=== PATIENT | female | born 1995 | race Caucasian/White ===

== ENCOUNTER → 2021-08-14 | Outpatient (REF) | payer OTHER, BC ==
[~2021-08-14] MED LIST: ALBU0.63 NEB; REGL10TA6 PO
[2021-08-14 13:37] LABS: HEMATOCRIT 36.9 % (36.0-47.0); HEMOGLOBIN 12.6 g/dl (12.0-15.5); MEAN CORPUSCULAR HEMOGLOBIN 29.1 pg (27.0-33.0); MEAN CORPUSCULAR HGB CONC 34.1 g/dl (32.0-36.5); MEAN CORPUSCULAR VOLUME 85.2 fl (80.0-96.0); PLATELET COUNT, AUTOMATED 304 10^3/uL (150-450); RED BLOOD COUNT 4.33 10^6/uL (4.00-5.40); WHITE BLOOD COUNT 8.6 10^3/uL (4.0-10.0)
[2021-08-14 15:00] LABS: HCG, SERUM QUANTITATIVE 71008 MIU/ML; HEPATITIS B SURFACE ANTIGEN NEGATIVE (NEGATIVE); HEPATITIS C VIRUS ABY INDEX 0.1 INDEX (<0.8); HIV 1&2 SCREEN CENTAUR NEGATIVE (NEGATIVE)
== END ==
LOC: M LAB REF 12:51
PROVIDERS: ATTEND Advanced Practice Midwife
DX: Z32.01 Encounter for pregnancy test, result positive (principal)

== ENCOUNTER 2021-08-16 19:39 | Emergency (ER) | payer OTHER, BC ==
[~2021-08-16] VITALS: Ht 167.6 cm; Wt 68.2 kg
--- OUTSIDE RECORDS SUMMARY | 2021-08-16 19:46 | CCD ---
Author Author [facility] Organization [facility] Address Unknown Phone Unavailable Support Name Relationship Address Phone SELF EMPLOYED [place] [address] [address] Next Of Kin [address] [place] [address] UE Next Of Kin Unknown Unavailable NEFTALI VAUGHAN Next Of Kin [address] [place] [address] ALEXANDER VAUGHAN Next Of Kin [address] [place] [address] Re-disclosure Warning The records that you are about to access may contain information from federally-assisted alcohol or drug abuse programs. If such information is present, then the following federally mandated warning applies: This information has been disclosed to you from records protected by federal confidentiality rules (42 CFR part 2). The federal rules prohibit you from making any further disclosure of this information unless further disclosure is expressly permitted by the written consent of the person to whom it pertains or as otherwise permitted by 42 CFR part 2. A general authorization for the release of medical or other information is NOT sufficient for this purpose. The Federal rules restrict any use of the information to criminally investigate or prosecute any alcohol or drug abuse patient.The records that you are about to access may contain highly sensitive health information, the redisclosure of which is protected by Article 27-F of the [facility] Public Health law. If you continue you may have access to information: Regarding HIV / AIDS; Provided by facilities licensed or operated by the [facility] Office of Mental Health; or Provided by the [facility] Office for People With Developmental Disabilities. If such information is present, then the following [facility] mandated warning applies: This information has been disclosed to you from confidential records which are protected by state law. State law prohibits you from making any further disclosure of this information without the specific written consent of the person to whom it pertains, or as otherwise permitted by law. Any unauthorized further disclosure in violation of state law may result in a fine or retirement sentence or both. A general authorization for the release of medical or other information is NOT sufficient authorization for further disc losure. Family History Family Member Name Family Member Gender Family Member Status Date o f Status Description Data Source(s) Unknown Female Problem [facility] ([facility] Medications No Information Insurance Providers Payer name Policy type / Coverage type Policy ID Covered libertarian ID Covered libertarian's relationship to pulido Policy Pulido Plan Information Star P [id number] S [id number] Star P [id number] S [id number] [facility] [id number] FA2 [id number] [facility] [id number] FA2 [id number] Self Pay O none S none Sliding Fee Scale S none S no ne [facility] [id number] SP [id number] Sliding Fee Scale S [id number] S [id number] [facility] Commercial [id number] Family Dependent [facility] O [id number] S [id number] SELF PAY UNAVAILABLE SP UNAVAILA BLE Problems, Conditions, and Diagnoses No Information Surgeries/Procedures No Information Results No Information Social History No Information
[2021-08-16] MEDS ORDERED: ALBU0.63 NEB (20:05)
[2021-08-16] MEDS ORDERED: REGL10TA6 PO (20:05)
[2021-08-16 20:35] LABS: BASO % 0.2 % (0.0-1.0); EOS # 0.1 10^3/uL (0.0-0.5); EOS % 1.1 % (0.0-3.0); HEMATOCRIT 34.9 % (36.0-47.0); LYMPH # 2.6 10^3/uL (1.5-5.0); LYMPH % 28.2 % (24.0-44.0); MEAN CORPUSCULAR HEMOGLOBIN 29.6 pg (27.0-33.0); MEAN CORPUSCULAR HGB CONC 34.4 g/dl (32.0-36.5); MEAN CORPUSCULAR VOLUME 86.2 fl (80.0-96.0); MONO # 0.6 10^3/uL (0.0-0.8); NEUTROPHILS % 64.2 % (36.0-66.0); PLATELET COUNT, AUTOMATED 277 10^3/uL (150-450); RED BLOOD COUNT 4.05 10^6/uL (4.00-5.40); WHITE BLOOD COUNT 9.3 10^3/uL (4.0-10.0)
[2021-08-16 21:24] LABS: BLOOD UREA NITROGEN 7 MG/DL (7-18); CALCIUM LEVEL 9.6 MG/DL (8.5-10.1); CARBON DIOXIDE LEVEL 24 MEQ/L (21-32); CHLORIDE LEVEL 105 MEQ/L (98-107); GLOMERULAR FILTRATION RATE > 60.0 (>60); GLUCOSE, FASTING 100 MG/DL (70-100); HCG, SERUM QUANTITATIVE 78410 MIU/ML; MAGNESIUM LEVEL 1.9 MG/DL (1.8-2.4); SODIUM LEVEL 137 MEQ/L (136-145)
--- OUTSIDE RECORDS SUMMARY | 2021-08-16 21:36 | CCD ---
Author Author [facility] Organization [facility] Address Unknown Phone Unavailable Support Name Relationship Address Phone SELF [place]ED [place] [address] [address] Next Of Kin [address] [place] [address] UE Next Of Kin Unknown Unavailable NEFTALI VAUGHAN Next Of Kin [address] [place] [address] ALEXANDER VAUGHAN Next Of Kin [address] [place] [address] Re-disclosure Warning The records that you are [...] is protected by Article 27-F of the [facility] Public Health law. If you continue you may have access to information: Regarding HIV / AIDS; Provided by facilities licensed or operated by the [facility] Office of Mental Health; or Provided by the [facility] Office for People With Developmental Disabilities. If such information is present, then the following [facility] mandated warning applies: This information has been [...] law may result in a fine or mcfp sentence or both. A general authorization for the release of medical or other information is NOT sufficient authorization for further disc losure. Family History Family Member Name Family Member Gender Family Member Status Date o f Status Description Data Source(s) Unknown Female Problem [facility]ENT ([facility] Medications No Information Insurance Providers Payer name Policy type / Coverage type Policy ID Covered republican ID Covered republican's relationship to pulido Policy Pulido Plan Information [place] P [id number] S [id number] [place] P [id number] S [id number] [facility] [id number] FA2 [id number] [facility] [id number] FA2 [id number] Self Pay O none S none Sliding Fee Scale S none S no ne [facility] [id number] SP [id number] Sliding Fee Scale S [id number] S [id number] [facility] Commercial [id number] Family Dependent [facility] O [id number] S [id number] SELF PAY UNAVAILABLE SP UNAVAILA BLE Problems, Conditions, and Diagnoses No Information Surgeries/Procedures No Information Results No Information Social History No Information
--- NOTE | 2021-08-16 22:06 | REPVR ---
PROCEDURE INFORMATION: Exam: US First Trimester, Transabdominal Exam date and time: 08/16/2021 8:52 PM Age: 26 years old Clinical indication: Lmp or gestational age (in weeks): 11wks2; Other: Vag bleeding; ; Additional info: Vaginal bleeding, abdominal pain. TECHNIQUE: Imaging protocol: Real-time transabdominal obstetrical ultrasound of the maternal pelvis and a first trimester , less than 14 weeks 0 days, with image documentation. COMPARISON: No relevant prior studies available. FINDINGS: Gestation: Single gestational sac demonstrated in the uterine fundus. Embryonic/ heart rate: heart rate is 165 bpm. Extra-embryonic membranes/Placenta: Placenta developing anteriorly. Amniotic fluid: Amniotic fluid/chorionic fluid is normal for gestational age. BIOMETRY: Gestational age (AUA): Gestational age based on crown-rump length is 10 weeks 2 days. This correlates with menstrual dates predicted 10 weeks 2 days based on LMP of 06/05/2021. [place]-Rump length: [place]-rump length measures 33.7 mm. MATERNAL: Uterus: Unremarkable. Cervix: Unremarkable. Right ovary/adnexa: Unremarkable ovary. Left ovary/adnexa: Unremarkable ovary. Intraperitoneal space: No intraperitoneal free fluid. IMPRESSION: Unremarkable 1st trimester scan at 10 weeks 2 days. Detailed structural survey can be performed between 19-20 weeks if clinically desired. Electronically signed by: Julio Cesar Paz On 08/16/2021 22:06:12 PM
[2021-08-16 22:57] VITALS: BP 122/70
[2021-08-17 00:44] LABS: GC DNA AMPLIFICATION NEGATIVE (NEGATIVE)
== END 2021-08-16 22:58 | disposition home or self-care (01) ==
LOC: M ED 19:39
DX: O20.9 Hemorrhage in early pregnancy, unspecified (principal); Z3A.10 10 weeks gestation of pregnancy; Z88.0 Allergy status to penicillin; Z88.1 Allergy status to other antibiotic agents